=== PATIENT | male | born 1975 | race Caucasian/White ===

== ENCOUNTER 2022-06-11 18:58 | Emergency (ER) | payer MEDICARE, MEDICAID ==
[2022-06-11] MEDS ORDERED: Ketamine 200 MG/20 ML MDV ONE (20:05)
[2022-06-11] MEDS ORDERED: Ketamine 200 MG/20 ML MDV IV ONE (20:18)
[2022-06-11] MEDS ORDERED: Ondansetron 4 MG/2 ML SDV IVPUSH ONE (20:18)
[2022-06-11] MEDS ORDERED: Ondansetron 4 MG/2 ML SDV ONE (20:22)
[2022-06-11] MEDS ORDERED: Sodium Chloride 0.9% 1,000 ML IV SCH (20:30)
[2022-06-11] MEDS ORDERED: traZODone 100 MG Tab PO STA (21:30)
[2022-06-11] MEDS ORDERED: OLANZapine 5 MG Tab PO ONE (21:31)
[2022-06-12] MEDS ORDERED: Diazepam 10 MG Tab ONE (11:17)
[2022-06-12] MEDS ORDERED: Nicotine 14 MG/24 Hr Patch ONE (13:23)
[2022-06-12] MEDS ORDERED: metFORMIN 1,000 MG Tab ONE (13:23)
== END 2022-06-12 08:50 | disposition home or self-care (01) ==
LOC: SUPCPDRO 18:58 → LB.ED 18:58
DX: F25.0 Schizoaffective disorder, bipolar type (principal); E11.9 Type 2 diabetes mellitus without complications; E03.9 Hypothyroidism, unspecified; F17.210 Nicotine dependence, cigarettes, uncomplicated; Z79.84 Long term (current) use of oral hypoglycemic drugs
CPT/HCPCS: 96365; 96375; 99283; 99283-25; A9270-GY; J2405; J7030

== ENCOUNTER 2022-06-12 10:40 | Emergency (ER) | payer MEDICARE, MEDICAID ==
[2022-06-12 11:25] LABS: ESTIMATED GFR 60 mL/min (>60)
[2022-06-12] MEDS: Diazepam 10 MG Tab PO ONE (11:26)
[2022-06-12] MEDS: Nicotine 14 MG/24 Hr Patch TRDERM SCH (13:24)
[2022-06-12] MEDS: metFORMIN 500 MG Tab PO SCH (13:25)
== END 2022-06-12 17:00 | disposition home or self-care (01) ==
LOC: LB.ED 10:40
DX: F25.9 Schizoaffective disorder, unspecified (principal); E11.9 Type 2 diabetes mellitus without complications; Z20.822 Contact with and (suspected) exposure to COVID-19; Z79.84 Long term (current) use of oral hypoglycemic drugs; Z79.899 Other long term (current) drug therapy
CPT/HCPCS: 36415; 80048; 80307; 85027; 99284; A9270; U0002